=== PATIENT | female | born 1970 | race Caucasian/White ===

== ENCOUNTER 2019-09-14 09:09 | Inpatient (IN) | payer SELFPAY ==
[2019-09-14] MEDS ORDERED: NS 0.9% 1000 ML** 1,000 ML IV ONE (09:10)
--- NOTE | 2019-09-14 09:15 | ED ---
Neurological HPI - HPI Summary HPI Summary: Darnell Maynard overhead called at 0840, ETA 20 minutes. This patient is a 48 y/o female presenting to [facility] via EMS for right sided weakness, right sided facial droop, and slurred speech since 1330 yesterday. Last well known is at 1330 yesterday 09/13/19. EMS reports patient went out for a cigarette at 1300 yesterday and developed a sudden headache on her frontal lobe. Patient took aspirin and her headache resolved. At 1330 yesterday patient began to feel her right side "funny" and throughout the day yesterday her symptoms worsened. Today patient has right sided weakness and is unable to move her right arm and right leg. Denies cough, fever, chills, body aches. Patient denies any PMHx. She admits to smoking and heavy alcohol drinking. Pt denies current drug use but did use drugs a "long time ago." Home Medications Medication Instructions Recorded Confirmed Type NK [No Home Medications Reported] 09/14/19 09/14/19 History - History of Current Complaint Stated Complaint: DARNELL LONG Time Seen by Provider: 09/14/19 09:10 Hx Obtained From: Patient, EMS Onset/Duration: Started hours ago, Still Present Timing: Sudden Onset Current Severity: Moderate Neurological Deficit Location: Facial, RUE, RLE Pain Intensity: 0 Pain Scale Used: 0-10 Numeric Character: Weak - right sided, Impaired Speech Aggravating: Nothing Alleviating: Nothing Associated Signs and Symptoms: Positive: Headache, Weakness, Impaired Speech - Slurred. Negative: Fever, Chest Pain, Shortness of Breath - Allergy/Home Medications Allergies/Adverse Reactions: Allergies Allergy/AdvReac Type Severity Reaction Status Date / Time No Known Allergies Allergy Verified 09/14/19 10:04 Home Medications: Home Medications Acetaminophen TAB* [Tylenol TAB*] 650 mg PO Q6H PRN tab 09/15/19 [Rx] Aspirin EC TAB* [Ecotrin EC Low Dose 81 MG*] 81 mg PO DAILY tab.ec 09/15/19 [Rx ] Atorvastatin* [Lipitor 40 MG*] 40 mg PO 1700 tab 09/15/19 [Rx] Clopidogrel TAB* [Plavix TAB*] 75 mg PO DAILY 30 Days tab 09/15/19 [Rx] Folic Acid TAB* [Folvite TAB*] 1 mg PO DAILY tab 09/15/19 [Rx] Lisinopril TAB* [Prinivil TAB 5 MG*] 5 mg PO DAILY tab 09/15/19 [Rx] Multivitamins/Minerals TAB* [Theragran/minerals TAB*] 1 tab PO DAILY tab [Rx] Thiamine TAB* [Vitamin B-1 TAB 100 MG*] 100 mg PO DAILY tab 09/15/19 [Rx] PMH/Surg Hx/FS Hx/Imm Hx Endocrine/Hematology History: Denies: Hx Diabetes Cardiovascular History: Denies: Hx Hypertension - Family History Known Family History: Positive: Cardiac Disease - CAD, Diabetes - Social History Alcohol Use: Occasionally Substance Use Type: Reports: None Substance Use Comment - Amount & Last Used: former substance use Smoking Status (MU): Current Every Day Smoker Review of Systems Negative: Fever, Chills Negative: Cough Negative: Myalgia Neurological/Mental Status: Other - POSITIVE: facial droop on the right Positive: Headache, Weakness - right sided, Slurred Speech All Other Systems Reviewed And Are Negative: Yes Physical Exam - Summary Physical Exam Summary: VITAL SIGNS: Reviewed. GENERAL: Patient is a well-developed and nourished female who is lying comfortable in the stretcher. Patient is not in any acute respiratory distress. HEAD AND FACE: No signs of trauma. No ecchymosis, hematomas or skull depressions. No sinus tenderness. EYES: PERRLA, EOMI x 2, No injected conjunctiva, no nystagmus. No photophobia. EARS: Hearing grossly intact. Ear canals and tympanic membranes are within normal limits. MOUTH: Oropharynx within normal limits. NECK: Supple, trachea is midline, no adenopathy, no JVD, no carotid bruit, no c- spine tenderness, neck with full ROM. No meningeal signs, no Kernig's or brudzinskis signs. CHEST: Symmetric, no tenderness at palpation. LUNGS: Clear to auscultation bilaterally. No wheezing or crackles. CVS: Regular rate and rhythm, S1 and S2 present, no murmurs or gallops appreciated. ABDOMEN: Soft, non-tender. No signs of distention. No rebound, no guarding, and no masses palpated. Bowel sounds are normal. EXTREMITIES: FROM in all major joints, no edema, no cyanosis or clubbing. NEURO: Alert and oriented x 3. Right sided facial droop. Right upper extremity and right lower extremity weakness. Decreased sensation on the right side. Patient with slurred speech. SKIN: Dry and warm. GCS: 15 Triage Information Reviewed: Yes Vital Signs On Initial Exam: Initial Vitals Temp Pulse Resp BP Pulse Ox 98.8 F 80 23 237/139 98 09/14/19 09:25 09/14/19 09:25 09/14/19 09:25 09/14/19 09:25 09/14/19 09:25 Vital Signs Reviewed: Yes Procedures - Sedation Patient Received Moderate/Deep Sedation with Procedure: No Diagnostics - Laboratory Result Diagrams: 09/15/19 07:05 09/15/19 07:05 Lab Statement: Any lab studies that have been ordered have been reviewed, and results considered in the medical decision making process. - Radiology Chest XR Radiology Interpretation Completed By: Radiologist Summary of Radiographic Findings: IMPRESSION: No acute cardiopulmonary process by radiograph. Dr. Berger has reviewed this report. - CT Brain CT CT Interpretation Completed By: Radiologist Summary of CT Findings: IMPRESSION: FINDINGS SUGGESTIVE OF CHRONIC SMALL VESSEL ISCHEMIA. NO ACUTE INTRACRANIAL PATHOLOGY. PRELIMINARY FINDINGS WERE DISCUSSED WITH DR. BERGER IN THE EMERGENCY DEPARTMENT AT APPROXIMATELY 9:24 AM ON August. Head/Neck CTA CT Interpretation Completed By: Radiologist Summary of CT Findings: IMPRESSION: 1. ATHEROMATOUS DISEASE. 2. CHRONIC SMALL VESSEL ISCHEMIC CHANGE. 3. NO INTERNAL CAROTID ARTERY STENOSIS BY NASCET CRITERIA. 4. NO ANEURYSM, VASCULAR MALFORMATION, OCCLUSION, OR STENOSIS OF THE VISUALIZED INTRACRANIAL CIRCULATION. Dr. Berger has reviewed this report. - EKG 0938 Cardiac Rate: NL - at 83 bpm EKG Rhythm: Sinus Rhythm Summary of EKG Findings: EKG at 0938 shows normal sinus rhythm at a rate of [address] elev[address]. ST depressions in leads I, II, V4, V5, V6. Q waves in lead V2. This EKG was interpreted and reviewed by ED physician. NIH Scale - NIH Scale Level of Consciousness: Alert/Keenly Responsive Ask Patient the Month and His/Her Age: Both Correct Ask Pt to Open/Close Eyes and Loose Hand Packer/Release Non-Paretic Hand: Both Correctly Best Gaze (Only Horizontal Eye Movement): Normal Visual Field Testing: No Visual Loss Facial Paresis-Pt to Smile & Close Eyes or Grimace Symmetry: Partial Paralysis Motor Function - Right Arm: Effort Against Mchenry Motor Function - Left Arm: No Drift-Holds 10 Seconds Motor Function - Right Leg: Effort Against Mchenry Motor Function - Left Leg: No Drift-Holds 10 Seconds Limb Ataxia-Must be out of Proportion to Weakness Present: Absent Sensory (Use Pinprick to Test Arms/Legs/Trunk/Face): Pinprick Less on Affected Best Language (Describe Picture, Name Items): No Aphasia Dysarthria (Read Several Words): Slurs Some Words Extinction and Inattention: No Abnormality Total Score: 8 Course/Dx - Course Course Of Treatment: Darnell Maynard overhead called at 0840 by ED physician, ETA 20 minutes. Patient arrives via EMS at [address] Berger and Dr. Muse immediately at bedside. Patient to CT at 0909. radiologist reports brain CT shows nothing acute at 0924. Patient returns from CT at 0930. Dr. Muse, neurologist, reports patient is not a candidate for TPA as her symptoms began at [address] Muse recommends Plavix, aspirin, and admission to the hospitalist at 0949. ---- -------. This patient is a 48 y/o female presenting to [facility] via EMS for right sided weakness, right sided facial droop, and slurred speech since 1330 yesterday. Last well known is at 1330 yesterday 09/13/19. EMS reports patient went out for a cigarette at 1300 yesterday and developed a sudden headache on her frontal lobe. Patient took aspirin and her headache resolved. At 1330 yesterday patient began to note right sided weakness. Today patient is unable to move her right arm and right leg. Denies cough, fever, chills, body aches. Patient denies any PMHx. She admits to smoking and heavy alcohol drinking. Pt denies current drug use but did use drugs a "long time ago.". Darnell maynard was called at 8:40 AM. ETA 20 min. Patient c.o or facial droop and right side weakness since yesterday at 1:30 pm. NIH is equal to 8. GCS is 15. In the ED course the patient was placed in a final inspector shuttle, IV access was obtained. Past medical records reviewed. Dr. Muse at her bedside. Symptoms started at 1: [address] Muse recommends no tPA. Blood test w/o a significant abnormality except for increased RBC 5.29, hgb is 17.2, hct is 49. Chloride is 100, glucose 116, troponin 0.04. Head CT IMPRESSION: FINDINGS SUGGESTIVE OF CHRONIC SMALL VESSEL ISCHEMIA. NO ACUTE INTRACRANIAL PATHOLOGY. CTA head and Neck IMPRESSION: 1. ATHEROMATOUS DISEASE. 2. CHRONIC SMALL VESSEL ISCHEMIC CHANGE. 3. NO INTERNAL CAROTID ARTERY STENOSIS BY NASCET CRITERIA. 4. NO ANEURYSM, VASCULAR MALFORMATION, OCCLUSION, OR STENOSIS OF THE VISUALIZED INTRACRANIAL CIRCULATION. Patient is with hypertensive emergency. She was given 20 mg of Labetalol. She was given ASA and Plavix. I discussed my physical exam and test results with Dr. Avila from the hospitalist services and she agrees to admit the patient to her services. The patient is hemodynamically stable, alert and oriented x 3. - Diagnoses Provider Diagnoses: Hypertensive urgency, Ischemic cerebrovascular accident (CVA) During the Visit The Following Alert/Code Occurred: Code Maynard - overhead called at 0840, ETA 20 minutes. - Physician Notifications Discussed Care Of Patient With: Margaret Avila - hospitalist Time Discussed With Above Provider: 09:53 Instructed by Provider To: Other - Dr. Avila, hospitalist, will consult for this patient. - Critical Care Time Critical Care Time: 75-104 min Critical Care Statement: Critical care time is provided exclusive of any time spent performing procedures. Discharge ED - Sign-Out/Discharge Documenting (check all that apply): Patient Departure [place] [facility] [place] Condition: Stable Disposition: ADMITTED TO [facility] - Billing Disposition and Condition Condition: STABLE Disposition: Admitted to [facility] - Attestation Statements Document Initiated by Scribe: Yes Documenting Scribe: Roxanne Mccain Provider For Whom Scribe is Documenting (Include Credential): Yanick Berger MD Scribe Attestation: Roxanne Mcmullen, scribed for Yanick Berger MD on 09/16/19 at 0709. Scribe Documentation Reviewed: Yes Provider Attestation: The documentation as recorded by the scribe, Roxanne Mccain accurately reflects the service I personally performed and the decisions made by me, Yanick Berger MD Status of Scribe Document: Viewed
[2019-09-14] MEDS ORDERED: Iodixanol* (CONTRAST) 320 MG/ML 100 ML SDV IV ONE (09:26)
[2019-09-14 09:43] LABS: ABS Eosinophils 0.1 10^3/ul (0-0.6); ABS Lymphocytes 1.7 10^3/ul (1.0-4.8); ABS Monocytes 0.7 10^3/ul (0-0.8); ABS Neutrophils 5.3 10^3/ul (1.5-7.7); Eosinophil % 1.5 %; Hematocrit 49 % (35-47); Hemoglobin 17.2 g/dL (12.0-16.0); Lymphocyte % 21.9 %; Mean Corpuscular HGB Conc 35 g/dL (31-36); Mean Corpuscular Hemoglobin 33 pg (27-31); Mean Corpuscular Volume 93 fL (80-97); Mean Platelet Volume 8.9 fL (7.4-10.4); Platelet Count 269 10^3/uL (150-450); Red Blood Count 5.29 10^6 /uL (3.70-4.87); Red Cell Distribution Width 15 % (10-15); White Blood Count 7.9 10^3/uL (3.5-10.8)
[2019-09-14] MEDS ORDERED: Clopidogrel TAB* 300 MG PO ONE (09:49)
[2019-09-14] MEDS ORDERED: Aspirin 81 mg CHEW TAB* 81 MG TAB.CHEW PO ONE (09:49)
[2019-09-14] MEDS ORDERED: Labetalol IV* 5 MG/ML 20 ML VIAL ONE (09:49)
[2019-09-14] MEDS: Labetalol IV* 5 MG/ML 20 ML VIAL IV PUSH ONE ×2 (09:50→10:02)
[2019-09-14 09:53] LABS: Activated Partial Thrombo Time 34.6 seconds (26.0-38.0)
[2019-09-14 10:09] LABS: ALT 30 U/L (7-52); AST 27 U/L (13-39); Albumin 4.2 g/dL (3.2-5.2); Albumin/Globulin Ratio 1.3 (1-3); Alkaline Phosphatase 68 U/L (34-104); Anion Gap 9 mmol/L (2-11); BUN/Creatinine Ratio 17.3 (8-20); Blood Urea Nitrogen 14 mg/dL (6-24); CO2 Carbon Dioxide 27 mmol/L (22-32); Calcium 9.5 mg/dL (8.6-10.3); Chloride 100 mmol/L (101-111); Cholesterol 217 mg/dL; EGFR African American 91.3 (>60); EGFR Non-African American 75.5 (>60); Globulin 3.3 g/dL (2-4); Glucose 116 mg/dL (70-100); HDL Cholesterol 87.4 mg/dL; LDL Cholesterol 120 mg/dL; Potassium 3.6 mmol/L (3.5-5.0); Sodium 136 mmol/L (135-145); Total Protein 7.5 g/dL (6.4-8.9); Triglycerides 50 mg/dL
[2019-09-14 10:11] LABS: Troponin I 0.04 ng/mL (<0.03)
[2019-09-14 10:14] LABS: HCG Pregnancy 0.69 mIU/mL
[2019-09-14 10:26] LABS: Alcohol 12 mg/dL (<10)
[2019-09-14] MEDS ORDERED: Acetaminophen TAB* 325 MG PO PRN (11:00)
--- NOTE | 2019-09-14 11:19 | CONS ---
CONSULTATION REPORT: DATE OF CONSULT: 09/14/19 PRIMARY CARE PROVIDER: She does not have a primary care provider. REASON FOR CONSULT: Right-sided weakness and slurred speech. HISTORY OF PRESENT ILLNESS: Ms. Cazares is a 48-year-old female who reports no significant past medical history, but does have a history of smoking and alcohol use, who was in her usual state of health until 1:30 p.m. yesterday when she developed sudden of right-sided weakness and slurred speech. Unfortunately, she was unable to come to the hospital at that time because she was taking care of her grandson who is out of school. She was brought to the ER this morning because of persistent symptoms of right-sided weakness and slurred speech. The patient notes that she smokes heavily over a pack a day. She drinks 6 beers at least 4 times a week and occasionally has hard alcohol. She denies any cocaine use or marijuana use. She states that she has a chronic cough, but denies any recent fevers, chills, nausea, vomiting, diarrhea, constipation, or viral symptoms. She states that yesterday at the time of the onset of her symptoms she developed a frontal headache and took several aspirin. At that time, she subsequently developed the right-sided symptoms. The headache resolved. She denies any vision loss. She denies any problems swallowing or hearing. She denies any problems on the left side with any symptoms. She has difficulty walking because of her right leg weakness. She notes no prior history of stroke or heart attack. Her NIH Stroke Scale at the time of admission was 8. She had 2 points for right facial palsy, 2 points for right arm, 2 points for right leg, 1 point for sensory, and 1 point for dysarthria. PAST MEDICAL HISTORY: As noted above, otherwise negative. She has no history of clotting disease or bleeding disorders that she is aware of. PAST SURGICAL HISTORY: Reported negative. HOME MEDICATIONS: None. She only took several aspirin yesterday for the headache. ALLERGIES: No known drug allergies. FAMILY HISTORY: She notes a long family history of coronary artery disease and diabetes. She states her father of diabetes. She is unclear about prior strokes. SOCIAL HISTORY: Heavy tobacco use. Moderate to heavy alcohol use. She denies any drug use. She is currently taking care of her grandson as her daughter is having to work. REVIEW OF SYSTEMS: Review of systems in 14-organ systems as noted above. PHYSICAL EXAM: Vital Signs: Blood pressure 224/130, she was given labetalol, current blood pressure 184/110; respiratory rate is 12 to 16; pulse is in the 80s to 90s; O2 sats are in the high 90s, she is on 2 L. In general, she is a well- nourished, somewhat disheveled female, in no acute distress, but she is very concerned and tearful. She is normocephalic, atraumatic. Sclerae are anicteric. Mucous membranes are moist. Oropharynx is clear. Nares are patent. She has poor dentition. Neck is supple. No thyromegaly. No carotid bruits. No meningismus. Chest: Clear to auscultation bilaterally. Cardiovascular is regular rate and rhythm without murmurs. Abdomen is nontender, nondistended. Extremities: No clubbing, cyanosis, or edema is present. Skin is warm and dry without lesions. On neurologic exam, she is awake, alert. She is oriented x3. Her speech is fluent. There is moderate dysarthria and slurred speech. Her recall of recent and remote events is intact. Her mood is dysthymic. Affect, mood congruent. Cranial Nerves: Her pupils are equally round and reactive to light and accommodation. Extraocular muscles appear full. There is no diplopia , no nystagmus. No ptosis is appreciated. Her visual rossi are full to confrontation. She has some loss of sensation in her right face. She has moderate right lower facial droop. Her tongue is midline. Palate raises symmetrically. Motor Exam: She has 4-/5 weakness on the right arm and leg. She is able to lift against gravity, but there is significant drift and her hand and leg fall back to the table within 5 to 10 seconds. Her left side is 5/ 5 throughout. Sensation: She has loss of light touch and pinprick in the right arm and right leg. She has no extinction to double simultaneous stimulation. DTRs are 1+ at the right biceps, 1+ at the right brachioradialis, 1+ at the right patella, 1+ at the right ankle, equivocal Babinski's. On the left, she has 2+ at the biceps, triceps, brachioradialis, patella; 1+ at the ankle; she withdraws to Babinski. [id number] and rapid alternating movements were difficult on the right side. On the left side, they are within normal limits. I saw no evidence of ataxia. She was able to do heel-to- meyers on the right side with some difficulty, but there does not appear to be any ataxia. Gait cannot be tested. DIAGNOSTIC STUDIES/LAB DATA: Lab work so far, she has hemoglobin of 17.2, hematocrit of 49. INR of 1.00. We are waiting on other studies. She did have a CT angiogram of the head and neck. I did review the films and agree with the findings. There was no obvious left MCA cutoff. She does have some atheromatous disease and some small vessel disease. No internal carotid artery stenosis. No intracranial artery issues. I reviewed the CT of the head as well and I agree with findings of radiologist. There was no evidence of any acute stroke, but there is some chronic small vessel disease appreciated. MRI of the brain has been ordered. Transthoracic echocardiogram has been ordered. ASSESSMENT AND PLAN: Ms. Cazares is a 48-year-old female with a history of heavy smoking and heavy alcohol use, no other past medical history, who presents to the hospital with acute onset of right hemiparesis and dysarthria at 1:30 p.m. yesterday. She was outside of the tPA window, but still within the large vessel occlusion window, but CT angiogram of the head and neck was negative for large vessel occlusion. Her NIH Stroke Scale on admission was 8 as noted above. Symptoms and findings are suggestive of a left middle cerebral artery stroke. She will be admitted to the hospital for further workup including the MRI of the brain and the echocardiogram. I will check lab work. She is 48 years old, but has no prior history of any bleeding disorders. My suspicion for hypercoagulable state given the fact that she is a very heavy smoker is low. I will check some inflammatory labs as well as other labs to rule out any possible precipitants of stroke. We will keep her blood pressure elevated in the 180 to 200 systolic over 90 to 100 diastolic. I would use blood pressure medication to keep her pressures in that range. We will check lipids and I am going to go ahead and start her on a statin 40 mg of atorvastatin. She has been given aspirin and loading of Plavix in the ER. We will continue dual antiplatelet therapy for 30 days and then she will need to be on a baby aspirin a day after that. We will monitor her on telemetry to look for any evidence of atrial fibrillation and other arrhythmias. We will need to get Speech Therapy and Physical Therapy involved. She will need a swallowing study before she has a diet. It is likely given the duration of her symptoms that she will have some persistent weakness on the right side and will need ongoing physical therapy. We discussed the importance of smoking cessation as well as alcohol cessation. We will continue to monitor her during her hospitalization. Thank you for the opportunity to participate in the care of this interesting patient. [id number]/[facility] #: [id number] LILIYA
[2019-09-14 12:09] LABS: Magnesium 1.9 mg/dL (1.9-2.7)
[2019-09-14] MEDS ORDERED: Thiamine INJ* 100 MG/ML 2 ML VIAL IM ONE (12:53)
[2019-09-14] MEDS ORDERED: LORazepam TAB(*) 1 MG PO SCH (13:00)
[2019-09-14 13:28] LABS: C Reactive Protein 4.2 mg/L (<8.01)
[2019-09-14 13:31] LABS: Troponin I 0.03 ng/mL (<0.03)
--- NOTE | 2019-09-14 13:40 | HP ---
HISTORY AND PHYSICAL: DATE OF ADMISSION: 09/14/19 PROVIDER: Shirley Steven NP. PRIMARY CARE PROVIDER: None. ATTENDING PHYSICIAN WHILE IN THE HOSPITAL: Dr. Margaret Avila* (dictated by Shirley Steven NP). CHIEF COMPLAINT: 1. Right-sided weakness. 2. Right facial droop. HISTORY OF PRESENT ILLNESS: Ms. Cazares is a 48-year-old female with no significant past medical history, who presented to the emergency room via EMS with right-sided weakness, right facial droop, slurred speech that started yesterday at 1:30 p.m. The patient reports that yesterday at approximately 1:30 , she developed headaches. Shortly after that, she reports that she developed palpitations in her chest and then noticed that the right side of her face, her arm and leg were numb. She states that by 6 p.m. last evening, she was unable to move her right side. The patient does have a history of smoking and heavy drinking, but denies any current illicit drug use. The patient denies any recent fever, chills, or chest pain. She denies any cough or hemoptysis. No associated shortness of breath or the palpitations. No nausea, vomiting, or diarrhea. She denies any blurred vision or dizziness. She does report that it feels funny with her swallowing, but is able to tolerate her secretions without choking. She does complain of tingling to the right side of her face and numbness to her right arm and right leg with limited range of motion. She denies any rashes, open sores, psychosis, or anxiety. While in the emergency room, the patient was a code johnson. She had a CTA of the head and neck and a CT of the brain, which showed chronic small vessel ischemia with no acute intracranial pathology. She was seen in the emergency room by Dr. Muse from Neurology and due to her right facial droop and right-sided weakness, Hospital Medicine was asked to see and evaluate her for admission. PAST MEDICAL HISTORY: None. PAST SURGICAL HISTORY: Ovarian cyst removed. HOME MEDICATIONS: None. ALLERGIES: No known drug allergies. FAMILY HISTORY: No reported history of stroke or ND within the family. Father with diabetes. Mother with ovarian cancer. SOCIAL HISTORY: The patient reports she smokes a half pack a day, drinks 4 to 5 beers 4 to 5 times a week. Denies any illicit drug use. She lives with her fiance. Surrogate decision maker in the event she is unable to make her own decisions is her fiance. She is a full code. REVIEW OF SYSTEMS: A 14-point review of systems was completed. All pertinent positives were mentioned in the HPI. PHYSICAL EXAMINATION GENERAL: At this time, Ms. Cazares is a 48-year-old female. She is alert and oriented, resting on the stretcher in the emergency room. She is noted to have right facial droop. Speech is slightly slurred. She is well developed, well nourished, appears her stated age. VITAL SIGNS: Blood pressure 165/99, heart rate 68, respirations are 20, O2 saturation 96%, temperature was 98.8. HEENT: Head is atraumatic, normocephalic. Eyes: EOMs are intact. Sclerae anicteric and not pale. Oral mucosa is moist. Right facial droop. NECK: Supple. LUNGS: Clear to auscultation bilaterally. No wheezes, rales or rhonchi. CARDIAC: S1, S2. Regular rate and rhythm. No murmurs, rubs or gallops. ABDOMEN: Soft and nontender. Bowel sounds are active x4. EXTREMITIES: She has minimal movement to the right arm and right leg. She has full range of motion to the left side. There is no clubbing or cyanosis. NEUROLOGIC: She is awake, she is alert. She is oriented x3. Her speech is slightly slurred. Her tongue deviates to the right. She has right facial droop. Right handgrip is absent, has minimal movement of her fingers on the right. She has minimal range of motion to the right arm, falls to the bed against gravity. She is able to lift her right leg off the bed, but quickly falls to the bed against gravity. Left handgrip is strong. Left leg range of motion is fully intact. Push-pull is intact. There is no drift of the left leg or the left arm. SKIN: Intact. DIAGNOSTIC STUDIES/LAB DATA: WBCs are 7.9, RBCs 5.29, hemoglobin 17.2, hematocrit is 49, platelet count is 269. INR 1, aPTT was 34.6. Sodium 136, potassium 3.6, chloride 100, carbon dioxide was 27, anion gap was 9, BUN was 14 , creatinine 0.81, glucose was 116, lactic acid 0.8, calcium 9.5. Total bilirubin 0.60, ASTs were 27, ALTs were 30, alkaline phosphatase was 68. Troponin was 0.04. Cholesterol was 217, LDL was 120, HDL was 87.4. Serum alcohol was 12. She had a CT of the brain, which showed chronic small vessel ischemic changes. No acute intracranial pathology. She had a chest x-ray, radiologist's impression: No active cardiopulmonary disease. She had a CTA of the head, which showed atheromatous disease, chronic small vessel ischemic changes, no internal carotid artery stenosis by NASCET criteria. No aneurysm, vascular malformation, occlusion or stenosis of the visualized intracranial circulation. She had an electrocardiogram, which showed sinus rhythm at a rate of 83. T-wave inversion in V1. ASSESSMENT AND PLAN: Ms. Cazares is a 48-year-old female with no significant past medical history, who presented to the emergency room with the complaints of right- sided weakness, right facial droop that started yesterday at 1:30 p.m. She was a code johnson on arrival. She will be admitted for: 1. Cerebrovascular accident. The patient has right-sided weakness and right facial droop. She did have a CT of the head and a CTA of the head and neck that showed no acute occlusion or aneurysm, and no acute intracranial pathology. She has an MRI that is pending at this point. We will get a transthoracic echocardiogram with bubble study. She did have Plavix 300 mg p.o. loading dose in the emergency room. We will continue her on aspirin 81 mg p.o. and Plavix 75 mg p.o. She will also be placed her on atorvastatin 40 mg as her LDL was 120 with a goal LDL of less than 70. She will have neuro checks q.4 hours. She will monitored on telemetry. I will get speech consult, PT and OT. Dr. Muse from Neurology has also been consulted and is involved in the care of this patient. 2. Hypertension. The patient has been hypertensive since arrival to the emergency room. She did receive labetalol in the emergency room. We will continue to monitor her blood pressure and allow for permissive hypertension in the range of 180 to 200 systolically over 90 to 100 diastolically as per neurology recommendation. 3. Elevated troponin. The patient does have an elevated troponin. We will continue to trend her troponins. I will get repeat EKG. She has been placed on aspirin and Plavix and statin at this time. Will monitor on telemetry for arrhythmia a cause of her elevated troponin as the patient does reports she had an episode of palpitations. 4. FEN. She can have a heart-healthy, caffeine-okay diet. 5. Code status. She is a full code. 6. DVT prophylaxis. I will place her on SCDs. TIME SPENT: Time spent on this admission was 60 minutes, greater than half of that time was spent at the bedside reviewing events leading thus far to her hospitalization, performing physical exam, and reviewing my plan of care. I have discussed this with my attending, Dr. Margaret Avila; she is in agreement with my plan. SHIRLEY STEVEN, LEGAL SUPPORT ASSISTANT [id number]/CPS #: [id number] LILIYA
[2019-09-14 14:02] LABS: TSH (Thyroid Stimulating Horm) 1.46 mcIU/mL (0.34-5.60)
[2019-09-14 14:04] LABS: Free T4 1.07 ng/dL (0.61-1.12)
[2019-09-14 14:13] LABS: Folate 12.62 ng/mL (>3.99)
[2019-09-14] MEDS: Folic Acid TAB* 1 MG PO SCH (14:31)
[2019-09-14] MEDS: Multivitamins/Minerals TAB PO SCH (14:31)
--- NOTE | 2019-09-14 14:43 | ECHO ---
*[facility]* [place] [address] Fax #: [phone] Transthoracic Echocardiogram Patient: Celestina Cazares : 1970 Study Date: 09/14/2019 Age: 48 Gender: F HR: 86 bpm Height: 64 in /162.6 cm BSA: 1.87 m^2 Weight: 179.6 lb /81.6 kg BMI: 30.9 kg/m^2 *[place]upola Mechanic: * Michaelle Vasquez [facility] *Referring Physician: * Odell Muse *Reading Physician: * Libertad Mcdermott MD Indications: CVA. History: Risk factors: ETOH use. Current tobacco use. Conclusions Summary: - Left ventricle: The cavity size is normal. Wall thickness is mildly increased. Systolic function is normal. The estimated ejection fraction is 60-65%. Doppler parameters are consistent with elevated ventricular end-diastolic filling pressure. - Right ventricle: Systolic function is normal. - Atrial septum: A PFO is not demonstrated by color Doppler or agitated saline contrast. - Mitral valve: There is trace regurgitation. - Tricuspid valve: There is trace regurgitation. - No prior echocardiogram to compare. Study data: Transthoracic echocardiogram. Procedure: Transthoracic echocardiography was performed. Image quality was fair. The study was technically limited due to poor patient compliance. A bubble study was performed. Complete 2D, spectral Doppler, and color flow Doppler. Location: Bedside. Patient status: Inpatient. Patient room number: 445-01. Rhythm: Normal sinus rhythm. Findings Left ventricle: The cavity size is normal. Wall thickness is mildly increased. Systolic function is normal. The estimated ejection fraction is 60-65%. Wall motion is normal; there are no regional wall motion abnormalities. Doppler parameters are consistent with abnormal left ventricular relaxation (grade 1 diastolic dysfunction). Doppler parameters are consistent with elevated ventricular end-diastolic filling pressure. Right ventricle: The cavity size is normal. Systolic function is normal. Left atrium: The atrium is normal in size. Right atrium: The atrium is normal in size. Atrial septum: A PFO is not demonstrated by color Doppler or agitated saline contrast. Negative Bubble Study. Images 79 and 80. Mitral valve: The leaflets are mildly thickened. There is no evidence of stenosis. There is trace regurgitation. Aortic valve: The valve is trileaflet. The leaflets are mildly thickened. Cusp separation is normal. There is no evidence of stenosis. There is no significant regurgitation. Tricuspid valve: The leaflets are normal thickness. There is no evidence of stenosis. There is trace regurgitation. Pulmonic valve: Not well visualized. There is no evidence of stenosis. There is no significant regurgitation. Aorta: Aortic root: The aortic root is appears normal. Ascending aorta: The ascending aorta is appears normal. Aortic arch: The aortic arch is appears normal. Pericardium: A prominent pericardial fat pad is present. There is no significant pericardial effusion. Pulmonary arteries: The main pulmonary artery is normal-sized. Systolic pressure can not be accurately estimated. Systemic veins: Inferior vena cava: The vessel is normal in size. There is (>= 50%) respiratory change in the IVC dimension. Measurements Left ventricle Value Ref Right atrium continued Value Ref JONO, LAX 4.1 cm 3.8 - 5.2 ML dim, ES, A4C 3.6 cm 2.6 - 4.4 ESD, LAX 2.7 cm 2.2 - 3.5 Estimated RAP 3 mm Hg --------- FS, LAX 34 % - 45 PW, ED, LAX 0.9 cm 0.6 - 0.9 Aortic valve Value Ref FS 34 % - 45 Ami diam, ED 1.7 cm --------- Mid-wall FS 14 % Peak v, S 1.61 m/sec --------- PW, ED 0.9 cm 0.6 - 0.9 VTI, S 30.3 cm --------- E', lat ami, TDI (L) 4.6 cm/sec >=10.0 Mean grad, S 5.0 mm Hg -- ------- E/e', lat ami, 18 Peak grad, S 10.0 mm Hg ----- ---- TDI LVOT/AV, VTI ratio 0.92 --------- E', med ami, TDI (L) 4.5 cm/sec >=7.0 E/e', med ami, 18 Mitral valve Value Ref TDI Peak E 0.83 m/sec --------- E', avg, TDI 4.6 cm/sec Peak A 1.05 m/sec ----- ---- E/e', avg, TDI (H) 18 <=14 Decel time 377 ms -- ------- Peak grad, D 2.7 mm Hg --------- LVOT Value Ref Peak E/A ratio 0.8 --------- Peak sage, S 1.52 m/sec VTI, S 28.0 cm Pulmonic valve Value Ref Peak grad, S 9 mm Hg Peak v, S 0.96 m/sec --------- Mean grad, S 5 mm Hg Peak grad, S 4.0 mm Hg --------- Ventricular septum Value Ref Aortic root Value Ref IVS, ED (H) 1.1 cm 0.6 - 0.9 Root diam 3.0 cm <4.0 Right ventricle Value Ref Ascending aorta Value Ref JONO, LAX 2.9 cm AAo AP diam, S 2.7 cm --------- JONO minor ax, A4C 3.2 cm 1.9 - 3.5 mid Aortic arch Value Ref Arch diam 2.3 cm --------- Left atrium Value Ref AP dim, ES 3.40 cm 2.70 - Decending aorta Value Ref 3.80 Lyric peak sage 0.91 m/sec --------- ML dim, A4C 4.1 cm SI dim, A4C 5.2 cm Inferior vena cava Value Ref Vol/bsa, ES, 1-p 26 ml/m^2 11 - 40 Diam 1.7 cm --------- A4C Vol/bsa, ES, A/L 32 ml/m^2 16 - 34 Right atrium Value Ref SI dim, ES 4.5 cm 3.4 - 5.3 Legend: (L) and (H) na values outside specified reference range. Prepared and electronically signed by Libertad Mcdermott MD 09/14/2019 14:43
[2019-09-14] MEDS: Atorvastatin* 40 MG TAB PO SCH (17:18)
[2019-09-14 17:36] LABS: Urine Appearance Cloudy; Urine Bilirubin Negative (Negative); Urine Blood 2+ (Negative); Urine Color Yellow; Urine Glucose Negative (Negative); Urine Ketones Trace (Negative); Urine Nitrite Negative (Negative); Urine Protein Negative (Negative); Urine Specific Gravity 1.032 (1.010-1.030); Urine Urobilinogen Negative (Negative)
[2019-09-14 17:42] LABS: Urine Bacteria Absent (Absent); Urine Red Blood Cell Trace(0-2/hpf) (Absent); Urine Squamous Epithelial Cell Present (Absent); Urine White Blood Cell Absent (Absent)
[2019-09-14] MEDS: hydrALAZINE IV* 20 MG/ML VIAL IV SLOW PU PRN (20:54)
[2019-09-15 07:33] LABS: ABS Basophils 0.1 10^3/ul (0-0.2); ABS Eosinophils 0.3 10^3/ul (0-0.6); ABS Monocytes 0.8 10^3/ul (0-0.8); Eosinophil % 3.3 %; Hematocrit 48 % (35-47); Hemoglobin 16.8 g/dL (12.0-16.0); Lymphocyte % 32.6 %; Mean Corpuscular HGB Conc 35 g/dL (31-36); Mean Corpuscular Hemoglobin 33 pg (27-31); Mean Corpuscular Volume 94 fL (80-97); Mean Platelet Volume 9.1 fL (7.4-10.4); Platelet Count 255 10^3/uL (150-450); Red Blood Count 5.06 10^6 /uL (3.70-4.87); Red Cell Distribution Width 16 % (10-15); White Blood Count 9.1 10^3/uL (3.5-10.8)
[2019-09-15 07:49] LABS: BUN/Creatinine Ratio 15.9 (8-20); Calcium 9.1 mg/dL (8.6-10.3); EGFR African American 109.9 (>60); EGFR Non-African American 90.8 (>60); Potassium 3.9 mmol/L (3.5-5.0)
[2019-09-15] MEDS: Clopidogrel TAB* 75 MG PO SCH (08:20)
[2019-09-15] MEDS: Multivitamins/Minerals TAB PO SCH (08:20)
[2019-09-15] MEDS: Thiamine TAB* 100 MG TAB PO SCH (08:20)
[2019-09-15] MEDS: Folic Acid TAB* 1 MG PO SCH (08:20)
[2019-09-15] MEDS: Aspirin EC TAB* 81 MG TAB.EC PO SCH (08:20)
--- NOTE | 2019-09-15 11:00 | PN ---
Subjective Date of Service: 09/15/19 Interval History: Reports interrupted sleep overnight. Reports that she continues to have weakness in the right leg and arm. reports increased movement of right lower leg. Speech remains slurred. Right facial droop. Patient is very tearful this AM. Denies chest pain, or shortness of breath. She is activity doing exercises provided to by PT/OT, she is very motivated to improve her strength on the right side. I have discussed with her the need for acute rehab and she is agreeable. SBP has ranged from 150-190's Family History: Unchanged from Admission Social History: Unchanged from Admission Past Medical History: Unchanged from Admission Objective Active Medications: Acetaminophen (Tylenol Tab*) 650 mg PO Q6H PRN PRN Reason: MILD PAIN or TEMP > 100.4 Aspirin (Aspirin Ec Tab*) 81 mg PO DAILY [facility] Last Admin: 09/15/19 08:20 Dose: 81 mg Atorvastatin Calcium (Lipitor*) 40 mg PO 1700 [facility] Last Admin: 09/14/19 17:18 Dose: 40 mg Clopidogrel Bisulfate (Plavix Tab*) 75 mg PO DAILY [facility] Last Admin: 09/15/19 08:20 Dose: 75 mg Folic Acid (Folvite Tab*) 1 mg PO DAILY [facility] Last Admin: 09/15/19 08:20 Dose: 1 mg Hydralazine HCl (Apresoline Iv*) 5 mg IV SLOW PU Q6H PRN PRN Reason: BLOOD PRESSURE Last Admin: 09/14/19 20:54 Dose: 5 mg Lorazepam (Ativan Tab(*)) 0 - 6 mg PO .PER [facility] PROTOCOL [facility]; Protocol Multivitamins/Minerals (Theragran/Minerals Tab*) 1 tab PO DAILY [facility] Last Admin: 09/15/19 08:20 Dose: 1 tab Thiamine HCl (Vitamin B-1 Tab*) 100 mg PO DAILY [facility] Last Admin: 09/15/19 08:20 Dose: 100 mg Vital Signs - 8 hr 09/15/19 09/15/19 09/15/19 03:26 05:12 07:11 Temperature 97.3 F 98.6 F 97.6 F Pulse Rate 76 69 83 Respiratory 18 18 20 Rate Blood Pressure 184/93 178/87 198/96 (mmHg) O2 Sat by Pulse 98 96 98 Oximetry 09/15/19 09/15/19 08:00 09:00 Temperature 97.4 F Pulse Rate 88 Respiratory 20 18 Rate Blood Pressure 175/99 (mmHg) O2 Sat by Pulse 98 97 Oximetry Oxygen Devices in Use Now: None Appearance: appears comfortable resting in the chair, no acute distress, tearful Eyes: No Scleral Icterus, PERRLA Ears/Nose/Mouth/Throat: Mucous Membranes Moist, - - Right facial droop is noted , smile is unequal with droop on the right. Neck: NL Appearance and Movements; NL JVP Respiratory: Symmetrical Chest Expansion and Respiratory Effort, Clear to Auscultation Cardiovascular: NL Sounds; No Murmurs; No JVD, No Edema Abdominal: NL Sounds; No Tenderness; No Distention Extremities: No Edema, No Clubbing, Cyanosis, - - right arm and leg with weakness, minimal movement to right arm. right foot turns inward. Skin: No Rash or Ulcers Neurological: Alert and Oriented x 3, - - right side with weakness, right facial droop, speech is slightly slurred, right foot turns inward. smile is unequal Nutrition: Taking PO's Result Diagrams: 09/15/19 07:05 09/15/19 07:05 Assess/Plan/Problems-Billing Assessment: Ms. Cazares is a 48 y.o female with no PMHX who presented to the ER with right sided weakness, found to have subacute non-hemorrhagic infarct in the left posterioir frontal pang radiata. - Patient Problems (1) CVA (cerebral vascular accident) Current Visit: Yes Status: Acute Code(s): I63.9 - CEREBRAL INFARCTION, UNSPECIFIED SNOMED Code(s): 861377890 Comment: MRI showed:SUBACUTE NONHEMORRHAGIC INFARCT INVOLVING THE LEFT POSTERIOR FRONTAL PANG RADIATA EXTENDING INTO THE LEFT EXTERNAL CAPSULE. - will continue with plavix and aspirin - will continue statin with a goal LDL less than 70 - will require extensive PT/OT and SIZING END BANDER - I would recommend PMRU if available (2) Hypertension Current Visit: Yes Status: Acute Code(s): I10 - ESSENTIAL (PRIMARY) HYPERTENSION SNOMED Code(s): 98223990 Comment: allowing for permissive hypertension- as per neurology recommendations - will maintain SBP 180-200/ 90-100 - will antihypertenive medication when able (3) Tobacco abuse Current Visit: Yes Status: Acute Code(s): Z72.0 - TOBACCO USE SNOMED Code( s): 306006485 Comment: discussed the need to quit smoking - patient reports that she is doing ok right know and has plans to stop smoking (4) DVT prophylaxis Current Visit: Yes Status: Acute Code(s): Z29.9 - ENCOUNTER FOR PROPHYLACTIC MEASURES, UNSPECIFIED SNOMED Code(s): 680824051 (5) Full code status Current Visit: Yes Status: Acute Code(s): Z78.9 - OTHER SPECIFIED HEALTH STATUS SNOMED Code(s): 351969685
--- NOTE | 2019-09-15 11:55 | PN ---
Subjective Date of Service: 09/15/19 Length of Stay: 1 Days Interval History: No new issues overnight. Tele showed no events. She remains weak on the right side. Has difficulty with transfers and needs full assist walking at this point. Studies: Echo: EF 60-65% No PFO Systolic function wnl. Trace MR Trace TR MRI: Subacute non-hemmorhagic stroke in left posterior frontal pang radiata extending into the left external capsule Chronic small vessel diseaes CTA: No ICA stenosis. No intracranial disease. Some atheromatous disease noted Right caudate head hypoattenuation Family History: Unchanged from Admission Social History: Unchanged from Admission Past Medical History: Unchanged from Admission Objective Active Medications: Acetaminophen (Tylenol Tab*) 650 mg PO Q6H PRN PRN Reason: MILD PAIN or TEMP > 100.4 Aspirin (Aspirin Ec Tab*) 81 mg PO DAILY [facility] Last Admin: 09/15/19 08:20 Dose: 81 mg Atorvastatin Calcium (Lipitor*) 40 mg PO 1700 [facility] Last Admin: 09/14/19 17:18 Dose: 40 mg Clopidogrel Bisulfate (Plavix Tab*) 75 mg PO DAILY [facility] Last Admin: 09/15/19 08:20 Dose: 75 mg Folic Acid (Folvite Tab*) 1 mg PO DAILY [facility] Last Admin: 09/15/19 08:20 Dose: 1 mg Hydralazine HCl (Apresoline Iv*) 5 mg IV SLOW PU Q6H PRN PRN Reason: BLOOD PRESSURE Last Admin: 09/14/19 20:54 Dose: 5 mg Lorazepam (Ativan Tab(*)) 0 - 6 mg PO .PER [facility] PROTOCOL [facility]; Protocol Multivitamins/Minerals (Theragran/Minerals Tab*) 1 tab PO DAILY [facility] Last Admin: 09/15/19 08:20 Dose: 1 tab Thiamine HCl (Vitamin B-1 Tab*) 100 mg PO DAILY [facility] Last Admin: 09/15/19 08:20 Dose: 100 mg Vital Signs 09/14/19 09/14/19 09/14/19 12:29 12:46 15:00 Temperature 98.0 F 97.6 F 97.6 F Pulse Rate 73 64 71 Respiratory 17 18 18 Rate Blood Pressure 191/97 150/102 151/90 (mmHg) O2 Sat by Pulse 96 98 98 Oximetry 09/14/19 09/14/19 09/14/19 17:31 19:34 20:48 Temperature 98 F 97.5 F Pulse Rate 63 74 Respiratory 20 16 Rate Blood Pressure 178/91 173/116 190/120 (mmHg) O2 Sat by Pulse 96 98 Oximetry 09/14/19 09/14/19 09/15/19 21:00 23:16 01:42 Temperature 98.1 F 97.4 F 97.5 F Pulse Rate 71 78 77 Respiratory 20 18 18 Rate Blood Pressure 178/89 190/87 (mmHg) O2 Sat by Pulse 99 98 98 Oximetry 09/15/19 09/15/19 09/15/19 03:26 05:12 07:11 Temperature 97.3 F 98.6 F 97.6 F Pulse Rate 76 69 83 Respiratory 18 18 20 Rate Blood Pressure 184/93 178/87 198/96 (mmHg) O2 Sat by Pulse 98 96 98 Oximetry 09/15/19 09/15/19 08:00 09:00 Temperature 97.4 F Pulse Rate 88 Respiratory 20 18 Rate Blood Pressure 175/99 (mmHg) O2 Sat by Pulse 98 97 Oximetry Intake and Output Last 24 Hours 09/13/19 09/14/19 09/15/19 09/16/19 06:59 06:59 06:59 06:59 Intake Total 1270 Output Total 400 Balance 870 Weight 183 lb 4.8 oz Intake: IV Fluids 1000 Oral 270 Output: Urine 400 Other: Estimated Void Small Small # Voids 2 Oxygen Devices in Use Now: None Neurology Exam: General: Well nourished, well developed, and in no acute distress HEENT: Normocephalic/atraumatic, sclera anicteric, mucous membranes moist Neck: Supple Chest: Clear to auscultation bilaterally Cardiovascular: Regular rate and rhythm without murmurs, rubs, gallops Abdomen: Soft, non-tender/non-distended Extremities: No clubbing, cyanosis, or edema Neurological Findings: Awake, alert, and oriented to person, place, and time. Speech: fluent with moderate dysarthria Cranial Nerve: PERRL, EOM intact, VFF, no nystagmus, right lower facial droop, notes that her right face "feels weird.", hearing intact to finger rub bilaterally, palate elevates symmetrically, tongue midline Motor: Significant flaccid HP on the right with limited movement of the RUE, wiggled fingers, no line construction superintendent, able to raise arm off the bed without assistance but drops back immediately. Similar in the RLE, can lift the leg but drops immediately. Distally she has 4-/5 at FF Sensation: Loss of LT/PP on the right arm/leg Finger to nose, rapid alternating movements intact on left, unable to perform on right. No resting or postural tremors Gait: She did get out of chair to bed with 2 person assist, belt. Result Diagrams: 09/15/19 07:05 09/15/19 07:05 Assessment/Plan Ms. Cazares is a 48-year-old female with a history of heavy smoking and heavy alcohol use, no other past medical history, who presents to the hospital with acute onset of right hemiparesis and dysarthria at 1:30 p.m. yesterday. She was outside of the tPA window, but still within the large vessel occlusion window, but CT angiogram of the head and neck was negative for large vessel occlusion. Her NIH Stroke Scale on admission was 8 as noted above. 1. Stroke: Secondary stroke risk factor reduction: --DAPT X 30 days then ASA 81mg q day --Statin: Goal LDL < 70 --BP control, can begin to normalize at this pint --Non-diabetic --SMOKING CESSATION: We had a long discussion about the importance of this --EtOH Cessation: Discussed this in detail as well --Will need intensive PT/OT/ST. I had a long talk with her about the importance of exercising and working hard on recovery. The first 6 months after a stroke is a critical time when regaining function is most possible. May be good candidate for inpatient rehab. --No personal or family history of any clotting disorders, miscarriages, blood clots. --Would recommend 30 day event monitor to look for evidence of A.fib 2. EtOH use: Discussed importance. Watch for evidence of W/D. Will need o/p counseling 3. Tobacco use: As noted above 4. Schedule follow up with me in 8-12 weeks. She should return to ER with any additional stroke symptoms. Neurology will sign off for now. Please call with any additional questions or concerns. Thank you for the opportunity to participate in her care.
[2019-09-15] MEDS: Atorvastatin* 40 MG TAB PO SCH (16:50)
--- NOTE | 2019-09-15 19:46 | DS ---
CC: Dr. Odell Muse* DISCHARGE SUMMARY: DATE OF ADMISSION: 09/14/19 DATE OF DISCHARGE: 09/16/19 PROVIDER: Shirley Steven NP PRIMARY CARE PROVIDER: None. ATTENDING PHYSICIAN WHILE IN THE HOSPITAL: Dr. Margaret Avila* (dictated by Shirley Steven NP) PRIMARY DIAGNOSES: 1. Cerebrovascular accident with right hemiparesis. 2. Hypertension. SECONDARY DIAGNOSES: 1. Tobacco abuse. 2. Alcohol abuse. STUDIES COMPLETED WHILE IN THE HOSPITAL: She had a CT of the brain on 09/14/19 , radiologist's impression: Findings suggestive of chronic small vessel ischemia. No acute intracranial pathology. She had a chest x-ray on 09/14/19, no active cardiopulmonary disease. She had a CTA of the head and neck, radiologist's impression: Atheromatous disease, chronic small vessel ischemic changes. No internal carotid artery stenosis by NASCET criteria. No aneurysm, vascular malformation, occlusion or stenosis of the visualized intracranial circulation. She had an MRI of the brain on 09/14/19, which showed subacute nonhemorrhagic infarct involving left posterior frontal pang radiata extending into the left external capsule, chronic small vessel ischemic changes. She had a transthoracic echocardiogram with bubble study. Bubble study was negative. Ejection fraction was 60% to 65%. Mild mitral valve: There was trace regurgitation. Tricuspid valve: Trace regurgitation. Systolic function was normal, wall thickness was mildly increased. She had an electrocardiogram, which showed sinus rhythm at rate of 60. DISCHARGE MEDICATIONS: New home medications: 1. Aspirin 81 mg p.o. daily. 2. Clopidogrel 75 mg p.o. daily x30 days, then discontinue. 3. Folic acid 1 mg p.o. daily. 4. Lisinopril 5 mg p.o. daily. 5. Multivitamin 1 tablet p.o. daily. 6. Thiamine 100 mg p.o. daily. 7. Atorvastatin 40 mg p.o. daily. Continued home medications: None. HISTORY OF PRESENT ILLNESS AND HOSPITAL COURSE: Ms. Cazares is a 48-year-old female with no significant past medical history, who presented to the emergency room via EMS for right-sided weakness, right facial droop, slurred speech that started at 1:30 one day prior to arrival. The patient reports at approximately 1:30 on 09/13/19, she developed a sudden onset of headache for which she took an aspirin. She reports that shortly after that she developed some palpitations in her chest and noted the right side of her face, arm, and leg were numb. She reports by 6 p.m. that evening, she was unable to move her right side. She reported that she initially did not come to the emergency room as she was watching her grandson when she woke and was still unable to move her right side. EMS was called and she was initially a code johnson in the emergency room. She was seen by Neurology, but was not tPA candidate because she was out of the window. During her hospitalization, the patient was monitored on telemetry. She had no arrhythmias. She had an MRI of the brain, which showed a subacute nonhemorrhagic infarct involving left posterior frontal pang radiata extending into the left internal capsule and chronic small vessel ischemic changes. She was again seen and followed by Neurology during this hospitalization. They have recommended Plavix and aspirin first 30 days and then to continue with aspirin 81 mg p.o. daily. They have also recommended a moderate intensity statin with a goal of LDL less than 70 and intensive PT/OT/ TILER. At this time, the patient has been offered bed in [facility] and she is stable to be transferred to [facility] at this time for intensive inpatient therapy. She is highly motivated and would be able to participate in 3 hours of intensive physical therapy daily. REVIEW OF SYSTEMS: The patient denies any fever, chills, chest pain, cough, hemoptysis, or shortness of breath. She denies any nausea, vomiting, or diarrhea. She does continue to complain of weakness on the right side. She does have minimal movement to the right arm with minimal finger movement, absent handgrip. She is able to raise her right lower leg, but does require 2 assist to get out of bed. Her right ankle does roll inward. PHYSICAL EXAMINATION: General: At this time, Ms. Cazares is alert and oriented , sitting in her hospital room. She is in no acute distress. Vital Signs: Blood pressure 160/102, heart rate is 71, respirations 16, O2 saturation 98%, temperature was 98.3. HEENT: Head is atraumatic, normocephalic. Eyes: EOMs are intact. Sclerae anicteric and not pale. Oral mucosa is moist. Neck is supple. Lungs are clear to auscultation bilaterally. No wheezes, rales, or rhonchi. Cardiac: S1, S2. Regular rate and rhythm. No murmurs, rubs, or gallops. Abdomen is soft and nontender. Bowel sounds are present x4. Extremities: She has minimal movement to her right lower leg. She can only move the fingers on her right hand. She is unable to raise her arm against gravity. She does have right facial droop and moderate dysarthria. Skin is intact. At this time, Ms. Cazares is stable to discharge to [facility]. DISCHARGE PLAN: Ms. Cazares will be discharged to [facility] for inpatient intensive physical therapy. 1. CVA with right-sided deficit and dysarthria. The patient will be transferred to [facility] for inpatient intensive physical therapy, occupational therapy, and speech therapy. She should continue on aspirin 81 mg p.o. daily and clopidogrel 75 mg p.o. daily x30 days and then continue with monotherapy with aspirin 81 mg p.o. daily. She should continue on atorvastatin 40 mg p.o. daily. Neurology has recommended slowly normalize her blood pressure. She will be started on lisinopril 5 mg tomorrow morning. She should follow up with Neurology in 8 to 12 weeks. She has been advised and instructed to stop smoking and stop drinking alcohol. The patient was watched on telemetry throughout this hospitalization. She was no evidence of arrhythmias. It was recommended by Neurology that the patient have a 30-day event monitor as well. 2. Hypertension. The patient has been hypertensive since admission to the hospital, I suspect this is associated with her acute stroke. It has been recommended by Neurology to slowly normalize her blood pressure. She will be started on lisinopril 5 mg starting tomorrow. I would recommend close monitoring of her blood pressure and adjusting medications as needed. 3. Elevated troponin. She had a minimally elevated troponin that normalized during this hospitalization. She never experienced chest pain or had any arrhythmias noted on telemetry. I suspect this is related to demand ischemia from her CVA and underlying hypertension. 4. FEN. She can have a heart healthy diet. The patient should return to the emergency room with any acute signs of stroke, weakness on one side, worsening speech, severe headache, change in her vision or any other concerning symptoms. CONDITION ON DISCHARGE: Stable. DISPOSITION ON DISCHARGE: [facility]. I have discussed this with my attending Dr. Margaret Avila; she is in agreement with my plan. SHIRLEY STEVEN, LOGGING SHOVEL OPERATOR [id number]/[facility] #: [id number] [facility]
[2019-09-16] MEDS: hydrALAZINE IV* 20 MG/ML VIAL IV SLOW PU PRN (01:18)
[2019-09-16 06:07] VITALS: BP 184/98
[2019-09-16] MEDS: Aspirin EC TAB* 81 MG TAB.EC PO SCH (07:34)
[2019-09-16] MEDS: Folic Acid TAB* 1 MG PO SCH (07:34)
[2019-09-16] MEDS: Thiamine TAB* 100 MG TAB PO SCH (07:34)
[2019-09-16] MEDS: Clopidogrel TAB* 75 MG PO SCH (07:34)
[2019-09-16] MEDS: Multivitamins/Minerals TAB PO SCH (07:34)
[2019-09-16] MEDS ORDERED: Lisinopril TAB* 5 MG PO SCH (09:00)
== END 2019-09-16 08:00 | DRG 65 ==
LOC: ED 09:09 → MEDTELE 11:00 → OBSVTOIN 11:01
PROVIDERS: ADMIT Internal Medicine; ATTEND Internal Medicine
DX: I63.9 Cerebral infarction, unspecified (principal); G81.91 Hemiplegia, unspecified affecting right dominant side; R29.810 Facial weakness; R47.1 Dysarthria and anarthria; I10 Essential (primary) hypertension; F17.210 Nicotine dependence, cigarettes, uncomplicated; F10.10 Alcohol abuse, uncomplicated; R74.8 Abnormal levels of other serum enzymes; R40.2433 Glasgow coma scale score 3-8, at hospital admission; Y90.0 Blood alcohol level of less than 20 mg/100 ml; Z83.3 Family history of diabetes mellitus; Z80.41 Family history of malignant neoplasm of ovary; Z82.49 Family history of ischemic heart disease and other diseases of the circulatory system
CPT/HCPCS: 36415; 70450; 70496; 70498; 70551; 71045; 80048; 80053; 80061; 80320; 81003; 81015; 82746; 83090; 83605; 83735; 84252; 84439; 84443; 84484; 84702; 85025; 85610; 85652; 85730; 86140; 93005; 93306; 96361; 96374; 96375; 99285; A9270-GY; G0480; J0360; J3411; Q9967

== ENCOUNTER 2023-02-28 14:45 | Inpatient (IN) ==
[2023-02-28 15:35] LABS: Hematocrit 21.7 % (35-45); Hemoglobin 6.7 g/dL (11.5-14.3); Mean Corpuscular Hemoglobin 20.9 pg (27-33); Mean Corpuscular Volume 67.4 fL (80-97); Mean Platelet Volume 8.9 fL (7.5-11.2); Platelet Count 328 10^3/uL (150-450); Red Blood Count 3.22 10^6/uL (3.63-4.92); Red Cell Distribution Width 20.2 % (12-17); White Blood Count 12.6 10^3/uL (3.8-11.8)
[2023-02-28 15:41] LABS: INR 1.15 (0.83-1.13)
[2023-02-28 16:04] LABS: Albumin 4.1 g/dL (3.2-5.2); Calcium 8.9 mg/dL (8.6-10.3); Potassium 4.6 mmol/L (3.5-5.0); Total Bilirubin 0.6 mg/dL (0.2-1.0)
[2023-02-28 16:10] LABS: Albumin/Globulin Ratio 1.4 (1-3); Creatinine, Serum 0.76 mg/dL (0.51-0.95); Total Protein 7.1 g/dL (6.4-8.9); eGFR CKD-EPI 94.2 (>60)
[2023-02-28] MEDS ORDERED: Iohexol 350 (CONTRAST) 500 ML MDV IV ONE (16:12)
[2023-02-28 16:13] LABS: ABS Eosinophils 0.3 10^3/uL (0.0-0.5); ABS Neutrophils 9.3 10^3/uL (1.5-7.6); ABS Nucleated RBC 0.02 10^3/ul; Eosinophil % 2.3 %; Lymphocyte % 15.6 %; Nucleated Red Blood Cells % 0.1 /100 WBC (0.0-0.4)
[2023-02-28 16:45] LABS: Microcytosis 2+
[2023-02-28 16:47] LABS: Anisocytosis 3+; Polychromasia 1+; Tear Drop Cells 1+
[2023-02-28 16:48] LABS: Hypochromasia 1+
[2023-02-28 17:05] LABS: High Sensitivity Troponin 1 Hr 20 pg/mL (<15)
[2023-02-28 20:09] LABS: HDL Cholesterol 31.6 mg/dL
[2023-03-01 01:04] LABS: Hematocrit 26.4 % (35-45); Hemoglobin 8.5 g/dL (11.5-14.3)
[2023-03-01 01:27] LABS: High Sensitivity Troponin 3 Hr 63 pg/mL (<15)
[2023-03-01 05:41] LABS: ABS Basophils 0.1 10^3/uL (0.0-0.1); ABS Eosinophils 0.5 10^3/uL (0.0-0.5); ABS Lymphocytes 2.4 10^3/uL (1.0-4.8); ABS Monocytes 0.8 10^3/uL (0.0-0.9); ABS Neutrophils 6.5 10^3/uL (1.5-7.6); ABS Nucleated RBC 0.02 10^3/ul; Eosinophil % 5.1 %; Hemoglobin 8.4 g/dL (11.5-14.3); Lymphocyte % 23.4 %; Mean Corpuscular Hemoglobin 22.9 pg (27-33); Mean Corpuscular Hgb Conc 32.4 g/dL (31-36); Mean Corpuscular Volume 70.7 fL (80-97); Mean Platelet Volume 8.8 fL (7.5-11.2); Nucleated Red Blood Cells % 0.2 /100 WBC (0.0-0.4); Platelet Count 292 10^3/uL (150-450); Red Blood Count 3.68 10^6/uL (3.63-4.92); Red Cell Distribution Width 22.5 % (12-17); White Blood Count 10.4 10^3/uL (3.8-11.8)
[2023-03-01 05:42] LABS: Creatinine, Serum 0.68 mg/dL (0.51-0.95); Potassium 3.9 mmol/L (3.5-5.0); eGFR CKD-EPI 104.7 (>60)
[2023-03-01] MEDS ORDERED: Potassium Chlor 10 meq TAB PO ONE (07:24)
[2023-03-01] MEDS: Multivitamins/Minerals TAB PO SCH (08:29)
[2023-03-01 11:56] LABS: Ferritin 7.8 ng/mL (11-307)
[2023-03-01 18:23] LABS: Hematocrit 29.1 % (35-45); Hemoglobin 9.4 g/dL (11.5-14.3)
[2023-03-02 06:41] LABS: ABS Basophils 0.2 10^3/uL (0.0-0.1); ABS Eosinophils 0.7 10^3/uL (0.0-0.5); ABS Lymphocytes 2.9 10^3/uL (1.0-4.8); ABS Monocytes 0.8 10^3/uL (0.0-0.9); ABS Nucleated RBC 0.02 10^3/ul; Eosinophil % 6.4 %; Hematocrit 26.9 % (35-45); Hemoglobin 8.6 g/dL (11.5-14.3); Lymphocyte % 27.1 %; Mean Corpuscular Hemoglobin 22.7 pg (27-33); Mean Corpuscular Hgb Conc 31.9 g/dL (31-36); Mean Corpuscular Volume 71.3 fL (80-97); Nucleated Red Blood Cells % 0.2 /100 WBC (0.0-0.4); Platelet Count 315 10^3/uL (150-450); Red Blood Count 3.78 10^6/uL (3.63-4.92); Red Cell Distribution Width 22.4 % (12-17); White Blood Count 10.6 10^3/uL (3.8-11.8)
[2023-03-02 06:54] LABS: Calcium 9.2 mg/dL (8.6-10.3); Creatinine, Serum 0.72 mg/dL (0.51-0.95); Magnesium 2.1 mg/dL (1.9-2.7); Potassium 4.2 mmol/L (3.5-5.0); eGFR CKD-EPI 100.5 (>60)
[2023-03-02] MEDS: Aspirin EC 81 mg TAB.EC (enteric coated) PO SCH (09:46)
[2023-03-02] MEDS: Multivitamins/Minerals TAB PO SCH (09:46)
[2023-03-02] MEDS ORDERED: Metoprolol Tartrate 5 mg VIAL 5 ml VIAL (1 mg/ml) ONE (16:24)
[2023-03-02] MEDS ORDERED: DOBUTamine 2000 MCG/ML IVPREMX 500 MG/250 ML BAG IV ONE (16:24)
[2023-03-02] MEDS ORDERED: Atropine 0.1 MG/ML 10 ml SYR (1 mg) ONE (16:24)
[2023-03-02] MEDS ORDERED: Sulfur Hexaflouride MICROSPHR 25 MG VIAL ONE (17:21)
[2023-03-02] MEDS: Nicotine PATCH 14 MG/24 HR PATCH TRANSDERM SCH (21:16)
[2023-03-03 06:25] LABS: ABS Basophils 0.1 10^3/uL (0.0-0.1); ABS Eosinophils 0.6 10^3/uL (0.0-0.5); ABS Lymphocytes 2.9 10^3/uL (1.0-4.8); ABS Neutrophils 6.4 10^3/uL (1.5-7.6); ABS Nucleated RBC 0.03 10^3/ul; Eosinophil % 5.2 %; Hematocrit 28.8 % (35-45); Hemoglobin 8.9 g/dL (11.5-14.3); Lymphocyte % 26.7 %; Mean Corpuscular Hemoglobin 22.5 pg (27-33); Mean Corpuscular Volume 72.5 fL (80-97); Nucleated Red Blood Cells % 0.3 /100 WBC (0.0-0.4); Platelet Count 314 10^3/uL (150-450); Red Blood Count 3.97 10^6/uL (3.63-4.92); Red Cell Distribution Width 22.9 % (12-17)
[2023-03-03 06:33] LABS: Calcium 9.3 mg/dL (8.6-10.3); Creatinine, Serum 0.75 mg/dL (0.51-0.95); eGFR CKD-EPI 95.7 (>60)
[2023-03-03] MEDS: Multivitamins/Minerals TAB PO SCH (09:49)
[2023-03-03] MEDS: Aspirin EC 81 mg TAB.EC (enteric coated) PO SCH (09:49)
[2023-03-03] MEDS: Nicotine PATCH 14 MG/24 HR PATCH TRANSDERM SCH (09:50)
[2023-03-03] MEDS ORDERED: Lactated Ringers 1000 ml BAG 1,000 ML IV ONE (10:41)
[2023-03-03] MEDS ORDERED: Lorazepam PYXIS KEY PRN (11:18)
[2023-03-03] MEDS ORDERED: LORazepam 2 mg VIAL 1 ml IV PUSH PRN (11:18)
[2023-03-03] MEDS ORDERED: Propofol 10 MG/ML 20 ML BTL ONE ×2 (14:03→14:04)
[2023-03-03] MEDS ORDERED: fentaNYL 100 mcg/2 ml 50 MCG/ML VIAL ONE (14:03)
[2023-03-03] MEDS ORDERED: Midazolam 2 mg/2 ml VIAL 1 mg/ml 2 ml VIAL (2 mg) ONE ×2 (14:04→14:17)
[2023-03-03] MEDS ORDERED: Lidocaine 2% PF 5 ML VIAL ONE ×2 (14:04→14:43)
[2023-03-03] MEDS ORDERED: KETAMINE HCL 10 MG/ML 20 ml VIAL (200 MG) ONE (14:05)
[2023-03-03] MEDS ORDERED: Propofol 0 MG/0 ML BTL ONE (14:42)
[2023-03-04] MEDS: Multivitamins/Minerals TAB PO SCH (08:37)
[2023-03-04] MEDS: Aspirin EC 81 mg TAB.EC (enteric coated) PO SCH (08:38)
[2023-03-04] MEDS: Nicotine PATCH 14 MG/24 HR PATCH TRANSDERM SCH (08:38)
[2023-03-04] MEDS ORDERED: Ferric Gluconate IV 250 MG in NS 0.9% 250 ml 200 ML IVPB ONE (09:00)
[2023-03-04 09:54] LABS: Calcium 9.3 mg/dL (8.6-10.3); Creatinine, Serum 0.73 mg/dL (0.51-0.95); Magnesium 1.8 mg/dL (1.9-2.7); Potassium 3.9 mmol/L (3.5-5.0); eGFR CKD-EPI 98.9 (>60)
[2023-03-04 09:55] LABS: ABS Basophils 0.1 10^3/uL (0.0-0.1); ABS Eosinophils 0.7 10^3/uL (0.0-0.5); ABS Lymphocytes 2.5 10^3/uL (1.0-4.8); ABS Nucleated RBC 0.01 10^3/ul; Eosinophil % 6.6 %; Hematocrit 32.2 % (35-45); Hemoglobin 10.2 g/dL (11.5-14.3); Lymphocyte % 22.2 %; Mean Corpuscular Hemoglobin 23.1 pg (27-33); Mean Corpuscular Hgb Conc 31.7 g/dL (31-36); Mean Corpuscular Volume 72.9 fL (80-97); Nucleated Red Blood Cells % 0.1 /100 WBC (0.0-0.4); Platelet Count 345 10^3/uL (150-450); Red Blood Count 4.42 10^6/uL (3.63-4.92); White Blood Count 11.4 10^3/uL (3.8-11.8)
[2023-03-04] MEDS ORDERED: Midazolam 5 mg/5 ml VIAL 1 mg/ml 5 ml VIAL (5 mg) ONE (10:14)
[2023-03-04] MEDS ORDERED: VERAPAMIL 2.5 MG/ML 2 ML VIAL ** 5 mg/2 ml ONE (10:14)
[2023-03-04] MEDS ORDERED: Iohexol 350 (CONTRAST) 100 ML PAK IV ONE ×2 (10:14→11:08)
[2023-03-04] MEDS ORDERED: fentaNYL 100 mcg/2 ml 50 MCG/ML VIAL ONE (10:14)
[2023-03-04] MEDS ORDERED: nitroGLYCERIN DRIP 25,000 MCG/250 ML BTL ONE (10:14)
[2023-03-04] MEDS ORDERED: Heparin 2 UNITS/ML 1000 mls 2,000 ML IV ONE (10:14)
[2023-03-04] MEDS ORDERED: Heparin 1,000 UNIT/ML 10 ml (10,000 UNITS) CATHLAB/DIALYSIS ONE (10:14)
[2023-03-04] MEDS ORDERED: Lidocaine 1% MPF 5 ML VIAL ONE (10:14)
[2023-03-04] MEDS ORDERED: Iohexol 350 (CONTRAST) 200 ML MDV IV ONE (10:15)
[2023-03-04] MEDS ORDERED: NS 0.9% 1000 ml BAG 1,000 ML IV SCH (11:30)
[2023-03-05 07:43] LABS: INR 1.09 (0.83-1.13)
[2023-03-05] MEDS ORDERED: Ferric Gluconate IV 250 MG in NS 0.9% 250 ml 200 ML IVPB ONE (08:30)
[2023-03-05] MEDS: Multivitamins/Minerals TAB PO SCH (09:11)
[2023-03-05] MEDS: Aspirin EC 81 mg TAB.EC (enteric coated) PO SCH (09:11)
[2023-03-05] MEDS: Nicotine PATCH 14 MG/24 HR PATCH TRANSDERM SCH (09:11)
[2023-03-05 10:13] VITALS: BP 137/78
[2023-03-05 13:13] LABS: Hematocrit 32.7 % (35-45); Hemoglobin 10.3 g/dL (11.5-14.3); Mean Corpuscular Hemoglobin 23.1 pg (27-33); Mean Corpuscular Hgb Conc 31.4 g/dL (31-36); Mean Corpuscular Volume 73.4 fL (80-97); Platelet Count 328 10^3/uL (150-450); Red Blood Count 4.45 10^6/uL (3.63-4.92); Red Cell Distribution Width 23.9 % (12-17); White Blood Count 11.9 10^3/uL (3.8-11.8)
== END 2023-03-05 14:25 | disposition home or self-care (01) | DRG 254 ==
LOC: EDHOLD 14:45 → ED 14:45 → SUATTDRO 19:40 → MED 03-01 19:47
PROVIDERS: ADMIT Student in an Organized Health Care Education/Training Program; ATTEND Internal Medicine
PROC: O.GIEGD (2023-03-03 13:10)